=== PATIENT | male | born 1975 | race Caucasian/White ===

== ENCOUNTER 2023-08-24 14:59 | Emergency (ER) | payer OTHER ==
[2023-08-24 15:23] VITALS: O2SAT 97
--- NOTE | 2023-08-24 16:42 | ED Physician Documentation ---
History of Present Illness - Stated complaint Stated Complaint: DOG BITE,RT ANKLE - Chief complaint Chief Complaint: General - Additonal information Additional information: 48-year-old male presents emergency department for a dog bite incident that happened over a week ago. Patient reports that his is quite anxious and she is very tearful saying what if there is a chance that patient could get rabies from this dog. Sounds like it was a small terrier mix they were walking outside dog bit her right ankle looks more to me like a scratch versus a bite wound appears to be healing well no signs or symptoms of infection. Patient's says that she is up at night wondering what if patient has rabies and they are seeking rabies vaccine here. PD PAST MEDICAL HISTORY - Past Medical History Past Medical History: Yes Cardiovascular: None Respiratory: None Neuro: None Endocrine/Autoimmune: None GI: None : None HEENT: None Psych: None Musculoskeletal: None Derm: Other - Past Surgical History Past Surgical History: No Derm: Skin cancer surgery - Present Medications Home Medications: Ambulatory Orders Medication Instructions Recorded Confirmed Rabies Vaccine [Rabavert] 2.5 unit IM ONCE 3 Days #3 ea 08/24/23 - Allergies Allergies/Adverse Reactions: Allergies Allergy/AdvReac Type Severity Reaction Status Date / Time No Known Drug Allergies Allergy Verified 08/24/23 15:12 - Social History Does the pt smoke?: No Smoking Status: Former smoker Does the pt drink ETOH?: Yes Does the pt have substance abuse?: Yes Substance Use and Type: Marijuana - Immunizations Immunizations are current?: Yes PD ED PE NORMAL - Vitals Vital signs reviewed: Yes - General General: Alert and oriented X 3, No acute distress, Well developed/nourished - Derm Derm: Other (right ankle abrasion, no puncture wound, no puncture wounds. ) - Psych Psych: Normal mood, Normal affect Results - Vitals Vitals: Vital Signs - 24 hr 08/24/23 08/24/23 15:15 17:47 Temperature 36.0 C L 36.0 C L Heart Rate 65 52 L Respiratory 16 18 Rate Blood Pressure 127/73 110/75 O2 Saturation 97 97 Oxygen O2 Source Room air PD Medical Decision Making - ED course ED course: 48-year-old male presents emergency department for 1 week later after dog biteTo the right ankle. They are getting very nervous because they were unable to get a hold of the dog's optical brightener maker helper and patient's says if there is even a tiny chance of the dog could have rabies they want to pursue prophylaxis treatment. Patient was given rabies IgG as well as rabies vaccine. They were told to follow-up and have injections on days 3, 7, 14 a prescription was sent to [facility] pharmacy for patient to pursue vaccines they are but they were also informed if their insurance is not accepted there to come back to the emergency department for these injections. Return precautions given. Departure - Departure Disposition: 01 Home, Self Care Clinical Impression: Encounter for prophylactic rabies immune globin Instructions: Rabies Immune Globulin human RIG solution for injection, Rabies Prescriptions: Rabies Vaccine [Rabavert] 2.5 unit IM ONCE 3 Days #3 ea Comments: Thank you for trusting us with your care per your request we have initiated rabies vaccines as well as rabies immunoglobulin. Today counts as day 0 he will then get another rabies vaccine day 3, 17, 14. 3 your next rabies shot will be Wednesday, August 26 and then again Wednesday, September 02 and again Wednesday, September 09. You will present back to the emergency department for each of these immunizations. If you are experiencing any side effects from the rabies vaccine you can take Tylenol ibuprofen for any pain or discomfort. Please present back to the emergency department return develop any fevers or chills or any other concerning symptoms. Forms: PCP List Discharge Date/Time: 08/24/23 17:47
[2023-08-24] MEDS: RABIES IMMUNE GLOBULIN 300 UNITS/2 ML IM STA (17:29)
[2023-08-24] MEDS: RABIES VACCINE 2.5 UNIT SYRINGE IM ONE (17:29)
[2023-08-24 17:48] VITALS: BP 110/75
== END 2023-08-24 17:47 | disposition home or self-care (01) ==
LOC: ED 14:59
DX: S99.911A Unspecified injury of right ankle, initial encounter (principal); W54.0XXA Bitten by dog, initial encounter; Y93.01 Activity, walking, marching and hiking; Z29.14 Encounter for prophylactic rabies immune globulin; Z87.891 Personal history of nicotine dependence
CPT/HCPCS: 90471; 96372; 99282; 99283